=== PATIENT | male | born 1970 | race Caucasian/White ===

== ENCOUNTER 2021-01-22 19:29 | Emergency (ER) | payer BC ==
[~2021-01-22] VITALS: Ht 177.8 cm; Wt 90.7 kg
[2021-01-22 20:00] VITALS: BP 157/95
--- NOTE | 2021-01-22 20:00 | NUR ---
TO BED VIA WHEEL CHAIR
--- NOTE | 2021-01-22 20:10 | NUR ---
PT. IS A 50 Y/O MALE WHO CAME INTO ED WITH PRESENTATION OF ETOH. PT. HAS GARBLED SPEECH AND STATES "I NEED A TRANQUILIZER." PT. HAS EYES CLOSED AND IS NOT SPEAKING IN CLEAR WORDS. PT. SMELLS OF ETOH. PT. COOPERATIVE WITH COMMANDS OF NURSING STAFF. SKIN IS PINK/WARM/DRY; HR EVEN AND REGULAR; PT DENIES ANY FEVER, CP, SOB, OR COUGH AT THIS TIME; VSS; PATIENT POSITIONED FOR COMFORT; HOB ELEVATED; BEDRAILS UP X2; BED DOWN. ER MD MADE AWARE OF PT STATUS.
[2021-01-22 21:21] LABS: BASOPHILS % (AUTO) 0.5 % (0.0-2.0); EOSINOPHILS % (AUTO) 0.1 % (0.0-4.0); HEMATOCRIT 42.1 % (36-52); HEMOGLOBIN 14.7 g/dL (12.0-18.0); LYMPHOCYTES % (AUTO) 23.9 % (20.5-51.1); MEAN CORPUSCULAR HEMOGLOBIN 34 pg (27-31); MEAN CORPUSCULAR HGB CONC 35 g/dL (33-37); MEAN CORPUSCULAR VOLUME 98.6 fL (80-94); MONOCYTES # (AUTO) 0.4 K/uL (0.8-1.0); MONOCYTES % (AUTO) 10.3 % (1.7-9.3); NEUTROPHILS # (AUTO) 2.8 K/uL (1.8-7.7); NEUTROPHILS % (AUTO) 65.2 % (42.2-75.2); PLATELET COUNT (AUTO) 103 K/uL (140-450); RED BLOOD CELL COUNT(AUTO) 4.27 MIL/uL (4.20-6.10); RED CELL DISTRIBUTION WIDTH 14.3 % (11.6-13.7); WHITE BLOOD COUNT (AUTO) 4.2 K/uL (4.8-10.8)
[2021-01-22 21:36] LABS: ALBUMIN 3.7 g/dL (3.4-5.0); ANION GAP 17.2 (8-16); ASPARTATE AMINOTRANSFERASE 698 U/L (15-37); CHLORIDE 97 mmol/L (98-107); CREATININE 0.9 mg/dL (0.6-1.3); GFR ARICAN-AMERICAN 115 mL/min (>90); GLUCOSE 139 mg/dL (74-106); POTASSIUM 3.2 mmol/L (3.5-5.1); SODIUM SERUM 137 mmol/L (136-145); TOTAL BILIRUBIN 0.9 mg/dL (0.0-1.0); UREA NITROGEN, BLOOD 8 mg/dL (7-18)
[2021-01-22 21:38] LABS: SALICYLATE < 2.8 mg/dL (2.8-20.0)
--- NOTE | 2021-01-22 21:38 | NUR ---
PT TAKEN TO CT VIA RBO.
[2021-01-22 21:42] LABS: ACETAMINOPHEN < 0.5 ug/ml (10-30)
--- NOTE | 2021-01-22 21:42 | NUR ---
RECIEVED CALL FOR CRITICAL VALUE: BLOOD ALCOHOL [phone]. PRIMARY RN AND HANSA MADE AWARE.
[2021-01-22 22:28] LABS: APPEARANCE,URINE CLEAR (CLEAR); BILIRUBIN,URINE NEGATIVE (NEGATIVE); BLOOD, URINE 1+ (NEGATIVE); COLOR,URINE YELLOW (YELLOW); LEUKOCYTE ESTERASE ,URINE NEGATIVE (NEGATIVE); NITRITE, URINE NEGATIVE (NEGATIVE); UGLUCOSE NEGATIVE (NEGATIVE)
[2021-01-22 22:36] LABS: RBC,URINE 0-5 /HPF (0-5); WBC,URINE 0-5 /HPF (0-5)
[2021-01-22 22:52] LABS: BARBITURATE, URINE NEGATIVE ng/ml (NEG <=200); BENZODIAZEPINE, URINE NEGATIVE ng/mL (NEG <=200); CANNABINOID, URINE NEGATIVE ng/mL (NEG <=50); COCAINE, URINE NEGATIVE ng/mL (NEG <=300); OPIATE, URINE NEGATIVE ng/mL (NEG <=2000); PHENCYCLIDINE SCREEN,URINE NEGATIVE ng/mL (NEG <=25)
--- NOTE | 2021-01-22 22:56 | NUR ---
PT. LAYING IN SUPINE POSITION, WITH EYES CLOSED. BREATHING EVEN AND REGULAR, NO DISTRESS NOTED. WILL CONT. TO MONITOR
[2021-01-22] MEDS ORDERED: NACL 0.9% 1,000 ML IV ONE (23:50)
--- NOTE | 2021-01-23 00:04 | NUR ---
PT. ASKING FOR WATER. GIVEN ICE CHIPS AND WATER.
[2021-01-23] MEDS ORDERED: MELATONIN 3 MG TAB PO PRN (03:05)
--- NOTE | 2021-01-23 06:00 | NUR ---
PT. STICKING OUT TONGUE REPEATEDLY. PT. STATES " I WANT A TRANQUILIZER." ERMD MADE AWARE.
[2021-01-23] MEDS ORDERED: LORazepam 2 MG/ML VIAL IVP ONE (07:10)
[2021-01-23] MEDS ORDERED: LIB25 PO (07:10)
--- NOTE | 2021-01-23 07:29 | NUR ---
REPORT AND TRANSFER OF CARE GIVEN TO JESSY WU.
--- NOTE | 2021-01-23 07:29 | NUR ---
Report and continuation of care received from Jitendra RN
[2021-01-23 08:26] VITALS: BP 157/95
--- NOTE | 2021-01-23 08:27 | NUR ---
Patient discharged with v/s stable. Written and verbal after care instructions given and explained. Patient alert, oriented and verbalized understanding of instructions. Ambulatory with steady gait. All questions addressed prior to discharge. ID band removed. Patient advised to follow up with PMD. Rx of LITHIUM given. Patient educated on indication of medication including possible reaction and side effects. Opportunity to ask questions provided and answered.
== END 2021-01-23 08:27 | disposition home or self-care (01) ==
LOC: MED 19:29 → EDBD 19:29 → MED 01-23 08:27
DX: F10.129 Alcohol abuse with intoxication, unspecified (principal); Y90.9 Presence of alcohol in blood, level not specified
CPT/HCPCS: 36415; 70450; 71045; 72125; 80053; 80305; 81001; 84484; 85025; 93005; 96361; 96374; 99285; G0480; G0482; J2060; J7030; Q0092